=== PATIENT | male | born 1995 | race Caucasian/White ===

== ENCOUNTER 2021-05-17 11:49 | Emergency (ER) | payer SELFPAY ==
[~2021-05-17] VITALS: Ht 170.2 cm; Wt 111.0 kg
[2021-05-17 12:00] VITALS: BP 162/91
[2021-05-17] MEDS ORDERED: predniSONE 10 MG TABLET PO ONE (12:30)
[2021-05-17] MEDS ORDERED: CETIRIZINE HCL 10 MG TABLET. PO ONE (12:30)
[2021-05-17] MEDS ORDERED: ALBUTEROL SULFATE 2.5 MG/3 ML NEBU. NEB ONE ×2 (12:30→13:15)
--- NOTE | 2021-05-17 12:34 | RAD ---
Two-view chest dated 05/17/2021 12:31 PM Comparison: None CLINICAL INDICATION: Wheezing FINDINGS: PA and lateral views obtained. Heart and mediastinal contours within normal limits. No consolidation or pleural effusion. No pneumothorax. Prominent perihilar linear markings IMPRESSION: 1. No evidence of focal pneumonia. 2. Mild peribronchial thickening, nonspecific. Consider acute or chronic bronchial inflammatory proce ss. Electronically signed by: James Schmidt MD (05/17/2021 12:32 PM) [id number]
[2021-05-17] MEDS ORDERED: ALBU2.5V8 INH (12:49)
[2021-05-17] MEDS ORDERED: METH4TAB2 PO (12:49)
--- NOTE | 2021-05-17 12:50 | PHYS DOC ---
Past Medical History Past Medical History: Asthma Past Surgical History: No Surgical History Smoking Status: Never Smoker Alcohol Use: None General Adult EDM: Chief Complaint: SHORTNESS OF BREATH HPI: HPI: Patient is a 25 year old male who presents with cough, wheezing, mid chest burning the last 2 days. He states he has had a low-grade fever. He is fully vaccinated for Covid. He denies abdominal pain, nausea, vomiting, diarrhea, headache, dizziness, syncope, back pain. He does have a history of asthma and allergies. He is not currently taking any allergy medication and he does not have an inhaler. Review of Systems: Review of Systems: Constitutional: +Low grade fever or chills. [] Eyes: Denies change in visual acuity. [] HENT: Denies nasal congestion or sore throat. [] Respiratory: + cough or +shortness of breath. +Wheezing [] Cardiovascular: + Mid chest burning or denies edema. [] GI: Denies abdominal pain, nausea, vomiting, bloody stools or diarrhea. [] : Denies dysuria. [] Musculoskeletal: Denies back pain or joint pain. [] Integument: Denies rash. [] Neurologic: Denies headache, focal weakness or sensory changes. [] Endocrine: Denies polyuria or polydipsia. [] Lymphatic: Denies swollen glands. [] Psychiatric: Denies depression or anxiety. [] Heart Score: C/O Chest Pain: No Risk Factors: Risk Factors: DM, Current or recent (<one month) smoker, HTN, HLP, family history of CAD, obesity. Risk Scores: Score 0 - 3: 2.5% MACE over next 6 weeks - Discharge Home Score 4 - 6: 20.3% MACE over next 6 weeks - Admit for Clinical Observation Score 7 - 10: 72.7% MACE over next 6 weeks - Early Invasive Strategies Current Medications: Current Medications Medications (Trade) Dose Ordered Sig/Anisa Start Time Stop Time Status Last Admin Dose Admin Albuterol Sulfate (Ventolin Neb Soln) 2.5 mg 1X ONCE 05/17/21 12:30 05/17/21 12:31 DC Cetirizine HCl (ZyrTEC) 10 mg 1X ONCE 05/17/21 12:30 05/17/21 12:31 DC 05/17/21 12:32 10 MG Prednisone (Prednisone) 50 mg 1X ONCE 05/17/21 12:30 05/17/21 12:31 DC 05/17/21 12:32 50 MG Allergies: Allergies: Allergies Coded Allergies Type Severity Reaction Last Updated Verified No Known Drug Allergies 05/17/21 No Physical Exam: PE: Constitutional: Well developed, well nourished, no acute distress, non-toxic appearance. [] HENT: Normocephalic, atraumatic, bilateral external ears normal, oropharynx moist, no oral exudates, nose normal. [] Eyes: PERRLA, EOMI, conjunctiva normal, no discharge. [] Neck: Normal range of motion, no tenderness, supple, no stridor. [] Cardiovascular:Heart rate regular rhythm, no murmur [] Lungs & Thorax: Left lung and right lower lobe breath sounds clear and right upper inspiratory wheezing to auscultation [] Abdomen: Bowel sounds normal, soft, no tenderness, no masses, no pulsatile masses. [] Skin: Warm, dry, no erythema, no rash. [] Back: No tenderness, no CVA tenderness. [] Extremities: No tenderness, no cyanosis, no clubbing, ROM intact, no edema. [] Neurologic: Alert and oriented X 3, normal motor function, normal sensory function, no focal deficits noted. [] Psychologic: Affect normal, judgement normal, mood normal. [] Current Patient Data: Vital Signs: Vital Signs Date Time Temp Pulse Resp B/P (MAP) Pulse Ox O2 Delivery O2 Flow Rate FiO2 05/17/21 12:00 98.5 105 16 162/91 (114) 97 Room Air 98.5 EKG: EKG: [] Radiology/Procedures: Radiology/Procedures: [] Impression: [facility] [address] [place] [address] IMAGING REPORT Signed PATIENT: CORINA COLBY ACCOUNT: [id number] : 1995 LOCATION: ER AGE: 25 SEX: M EXAM STATUS: REG ER ORD. PHYSICIAN: CAMMY HASSAN APRN REASON: ASTHMA, WHEEZING PROCEDURE: CHEST PA & LATERAL Two-view chest dated 05/17/2021 12:31 PM Comparison: None CLINICAL INDICATION: Wheezing FINDINGS: PA and lateral views obtained. Heart and mediastinal contours within normal limits. No consolidation or pleural effusion. No pneumothorax. Prominent perihilar linear markings IMPRESSION: 1. No evidence of focal pneumonia. 2. Mild peribronchial thickening, nonspecific. Consider acute or chronic bronchial inflammatory process. Electronically signed by: James Schmidt MD (05/17/2021 12:32 PM) [id number] DICTATED and SIGNED BY: JAMES SCHMIDT MD DATE: 05/17/21 [id number] Course & Med Decision Making: Course & Med Decision Making Pertinent Labs and Imaging studies reviewed. (See chart for details) See HPI. Inspiratory wheezing is heard on the right upper lung lobe. Otherwise lungs are clear and there is no wheezing. Patient is given a breathing treatment in the ED. He is given prednisone. Alert and oriented x4. Speaks in full clear sentences. Vital signs are within normal limits. Chest x-ray shows bronchitis. Ambulatory with a steady gait. Skin pink warm and dry. Patient will be sent home with an inhaler and Medrol Dosepak. [] Dragon Disclaimer: Draghelen Disclaimer: This electronic medical record was generated, in whole or in part, using a voice recognition dictation system. Departure Departure Impression: Primary Impression: Bronchitis Disposition: 01 HOME / SELF CARE / HOMELESS Condition: STABLE Referrals: NO PCP (PCP) Patient Instructions: Acute Bronchitis Additional Instructions: Follow-up with a primary care physician see as possible. Take medication as prescribed and with food. Drink plenty of fluids. Rest. I would try to stay i nside for a while especially while you are having a allergy and asthma exacerbation. If anything worsens come back to the emergency room. Scripts Methylprednisolone (MEDROL) 4 Mg Tab.ds.pk 1 PKG PO UD, #1 PKG Prov: CAMMY HASSAN SWINGING CUT OFF SAW OPERATOR 05/17/21 Albuterol Sulfate (PROAIR HFA INHALER) 8.5 Gm Hfa.aer.ad 1 PUFF INH PRN Q4-6HRS PRN for SHORTNESS OF BREATH, #1 EACH 0 Refills Prov: CAMMY HASSAN SWINGING CUT OFF SAW OPERATOR 05/17/21 CAMMY HASSAN APRN May 17, 2021 12:50
== END 2021-05-17 13:27 | disposition home or self-care (01) ==
LOC: ER 11:49
DX: J45.909 Unspecified asthma, uncomplicated (principal)
CPT/HCPCS: 71046; 94640; 99284; J7512; J7613